=== PATIENT | female | born 1935 | race Caucasian/White ===

== ENCOUNTER 2017-02-25 19:31 | Inpatient (IN) | payer OTHER ==
[~2017-02-25] VITALS: Ht 157.5 cm; Wt 53.5 kg
[2017-02-25] MEDS ORDERED: QUET25TA PO (19:45)
[2017-02-25] MEDS ORDERED: DIAZ2TAB PO (19:45)
[2017-02-25] MEDS ORDERED: LEVO25TA2 PO (19:45)
--- NOTE | 2017-02-25 19:51 | NUR ---
DANNI FROM A RESIDENSE FOR PSYCH EVAL FOR " INTERMITENT HALUCINATIONS AND REFUSED TO GO TO HOSPITAL" -SI/-HI. PLACED ON 5242 02/25/17. PT IS A/O X 3 AND VERY PLEASANT. PT IS IN NO ACUTE DISTRESS IN BED. PT STATES "I WANT TO GO HOME AND WATCH MY DVDS." PT NOT C/O ANY PAIN, SOB, DIFFICULTY BREATHING AT THIS TIME. PT IS RESTING IN BED.
[2017-02-25 20:29] LABS: BASOPHILS # (AUTO) 0.1 /CMM (0.0-0.2); EOSINOPHILS % (AUTO) 0.3 % (0.0-6.0); HEMATOCRIT 45 % (33-45); HEMOGLOBIN 14.7 g/dL (11.5-14.8); LYMPHOCYTES # (AUTO) 1.2 /CMM (0.8-4.8); LYMPHOCYTES % (AUTO) 10.8 % (20.0-44.0); MEAN CORPUSCULAR HEMOGLOBIN 30 PG (26.0-33.0); MEAN CORPUSCULAR HGB CONC 33 g/dl (31.0-36.0); MEAN CORPUSCULAR VOLUME 92 fL (82-100); MONOCYTES # (AUTO) 0.5 /CMM (0.1-1.30); MONOCYTES % (AUTO) 4.2 % (2.0-12.0); NEUTROPHILS # (AUTO) 9.5 /CMM (1.8-8.9); NEUTROPHILS % (AUTO) 83.7 % (43.0-81.0); PLATELET COUNT (AUTO) 260 /CMM (150-450); RDW COEFFICIENT OF VARIATION 13.2 (11.5-15.0); RED BLOOD CELL COUNT(AUTO) 4.87 MIL/uL (4.0-5.2); WHITE BLOOD COUNT (AUTO) 11.3 K/uL (4.3-11.0)
[2017-02-25 20:39] LABS: CALCIUM, SERUM 9.1 mg/dL (8.5-10.1); CARBON DIOXIDE 29 mmol/L (21-32); CHLORIDE 107 mmol/L (98-107); CREATININE 1.3 mg/dL (0.6-1.3); GLUCOSE 125 mg/dL (74-106); POTASSIUM 4.1 mmol/L (3.5-5.1); SODIUM SERUM 141 mmol/L (136-145); UREA NITROGEN, BLOOD 19 mg/dL (7-18)
[2017-02-25 20:45] LABS: ALANINE AMINOTRANSFERASE 20 U/L (12-78); ALBUMIN 3.6 g/dL (3.4-5.0); ALCOHOL, BLOOD < 3 mg/dL (0-0); ALKALINE PHOSPHATASE 102 U/L (46-116); ASPARTATE AMINOTRANSFERASE 18 U/L (15-37); BILIRUBIN,DIRECT 0.1 mg/dL (0.0-0.2); BILIRUBIN,TOTAL 0.4 mg/dL (0.2-1.0); TOTAL PROTEIN, SERUM 7.4 g/dL (6.4-8.2)
[2017-02-25 20:47] LABS: ACETAMINOPHEN < 10 ug/ml (10-30); SALICYLATE 2.3 mg/dL (2.8-20.0)
[2017-02-25 22:00] VITALS: BP 149/71
--- NOTE | 2017-02-25 22:00 | NUR ---
GPS ADMISSION NOTE: ADMITTED THIS 81 Y/O FEMALE PATIENT FROM HOME. PATIENT ADMITTED ON A 5150 HOLD FOR DTS AND GD. PER HOLD PATIENT REPORTED THAT SHE LOST HER SISTER A COUPLE OF YEARS AGO AND SHORTLY AFTER LOST HER . PATIENT REPORTED MANY LOSSES IN HER LIFE, SHE IS VERY DEPRESSED AND CRIES /. THERAPIST REPORTED THAT RECENTLY SHE HAD A LACK OF APPETITE, AND PASSIVE SUICIDAL STATEMENTS "I'M BETTER OFF ", I'M GOING TO STARVE MYSELF TO ". PATIENT ALSO HAD POOR SLEEP, INCREASE IN PARANOID THOUGHTS AND HALLUCINATIONS. UPON FACE TO FACE ASSESSMENT PATIENT IS ALERT AND ORIENTATED X 2, AMBULATORY WITH ASSIST. PT IS LEGALLY BLIND, DISHEVELED, DEPRESSED, COOPERATIVE. V/S WNL. NO COMPLAIN OF PAIN/DISCOMFORT AT THIS TIME. PATIENT DENIES SUICIDE IDEATIONS AND HOMICIDAL IDEATIONS AT THIS TIME. PATIENT IS UNDER THE PSYCHIATRIC CARE OF DR. CELAYA AND THE MEDICAL CARE OF DR CLEMENS. PATIENT BELONGINGS WERE INVENTORIED AND CHECKED FOR CONTRABAND. ALL CONTRABAND REMOVED AND STORED IN PATIENT LOCKER. MRSA DONE. SKIN ASSESSMENT COMPLETED. ALL NEEDS ATTENDED AND ANTICIPATED. PATIENT BED SIDE RAILS ARE UP X 2 FOR SAFETY. WILL CONTINUE TO MONITOR PATIENT Q 15 MINS FOR SAFETY.
[2017-02-25] MEDS ORDERED: ACETAMINOPHEN 325 MG TABLET PO PRN (23:30)
[2017-02-25] MEDS ORDERED: MAG HYDROX/AL HYDROX/SIMETH 30 ML UDC PO PRN (23:30)
[2017-02-25] MEDS ORDERED: clonazePAM 0.5 MG TABLET PO PRN (23:30)
[2017-02-25] MEDS ORDERED: TEMAZEPAM 7.5 MG CAPSULE PO PRN (23:30)
[2017-02-25] MEDS ORDERED: MAGNESIUM HYDROXIDE 30 ML UDC PO PRN (23:30)
[2017-02-26 06:28] LABS: BASOPHILS % (AUTO) 0.3 % (0.0-2.0); EOSINOPHILS # (AUTO) 0.1 /CMM (0.0-0.7); EOSINOPHILS % (AUTO) 0.6 % (0.0-6.0); HEMATOCRIT 43 % (33-45); HEMOGLOBIN 14.2 g/dL (11.5-14.8); LYMPHOCYTES # (AUTO) 1.4 /CMM (0.8-4.8); LYMPHOCYTES % (AUTO) 16.7 % (20.0-44.0); MEAN CORPUSCULAR HEMOGLOBIN 30 PG (26.0-33.0); MEAN CORPUSCULAR HGB CONC 33 g/dl (31.0-36.0); MEAN CORPUSCULAR VOLUME 93 fL (82-100); MONOCYTES # (AUTO) 0.4 /CMM (0.1-1.30); MONOCYTES % (AUTO) 5.2 % (2.0-12.0); NEUTROPHILS # (AUTO) 6.6 /CMM (1.8-8.9); NEUTROPHILS % (AUTO) 77.2 % (43.0-81.0); PLATELET COUNT (AUTO) 253 /CMM (150-450); RDW COEFFICIENT OF VARIATION 14.1 (11.5-15.0); RED BLOOD CELL COUNT(AUTO) 4.68 MIL/uL (4.0-5.2); WHITE BLOOD COUNT (AUTO) 8.6 K/uL (4.3-11.0)
[2017-02-26 07:00] VITALS: BP 149/71
[2017-02-26 07:12] LABS: CHOLESTEROL 160 mg/dL (<200); HDL CHOLESTEROL 41 mg/dL (40-60); LDL 97 mg/dL (0-99); TRIGLYCERIDES 88 mg/dL (30-150)
[2017-02-26 07:14] LABS: ALANINE AMINOTRANSFERASE 21 U/L (12-78); ALBUMIN 3.3 g/dL (3.4-5.0); ALKALINE PHOSPHATASE 97 U/L (46-116); ASPARTATE AMINOTRANSFERASE 19 U/L (15-37); BILIRUBIN,TOTAL 0.6 mg/dL (0.2-1.0); CALCIUM, SERUM 9.5 mg/dL (8.5-10.1); CARBON DIOXIDE 27 mmol/L (21-32); CHLORIDE 109 mmol/L (98-107); CREATININE 1.2 mg/dL (0.6-1.3); GLUCOSE 106 mg/dL (74-106); POTASSIUM 3.8 mmol/L (3.5-5.1); SODIUM SERUM 145 mmol/L (136-145); TOTAL PROTEIN, SERUM 7.1 g/dL (6.4-8.2); UREA NITROGEN, BLOOD 18 mg/dL (7-18)
[2017-02-26] MEDS ORDERED: DIAZ5TAB4 PO (07:18)
[2017-02-26 08:34] VITALS: BP 133/65
--- NOTE | 2017-02-26 08:35 | NUR ---
WOUND CARE CONSULT PATIENT SEEN AND SKIN INTEGRITY ASSESSMENT DONE. SEE [employer] REP ASSESSMENT IN [facility] FOR TODAY ALONG WITH ALL RECOMMENDATIONS. TREATMENT PLANS DISCUSSED WITH MD AND MD IN AGREEMENT. PATIENT WITH BIANCA AT 20, INDEPENDENT WITH BED MOBILITY AT THIS TIME. RECOMMEND PODIATRY CONSULT FOR FEET AND ALL TOENAILS X 10. Addendum: 02/26/17 at 0837 by CHELLY CARNEY WNDNU Amended: Links added.
[2017-02-26] MEDS: Z GUARD REMEDY 2 OZ OINT TP SCH (09:28)
[2017-02-26] MEDS: CLOTRIMAZOLE 1% 15 GM TUBE TP SCH ×2 (09:29→16:58)
--- NOTE | 2017-02-26 14:45 | NUR ---
Initial Discharge Note: Patient resides at [id number] [place] [id number] / [phone]. Patient reports having a caregiver. Patient wishes to return home upon discharge. EMY called Des Cohen [phone] / [phone] and left a voicemail regarding patient's discharge plan. EMY will follow up with MD and with caregiver and will work to arrange a safe and proper discharge.
--- NOTE | 2017-02-26 15:44 | NUR ---
UR Update: EMY called SILVANA ADAMS PHONE [phone] and confirmed that patient was approved through the weekend. Silvana stated yes and that the clinicals would be due on Wednesday. EMY will follow up at that time. AUTH# [id number]
[2017-02-26 16:20] VITALS: BP 141/67
--- NOTE | 2017-02-26 16:25 | NUR ---
RN NOTES PATIENT SEEN BY DR. REICH, RECEIVED NEW ORDERS. ORDER NOTED AND CARRIED OUT. PATIENT PREFERS TO TAKE SYNTHROID IN THE AFTERNOON, USUALLY AT 4PM. ORDER CHANGED, DR. CLEMENS MADE AWARE.
[2017-02-26] MEDS: LEVOTHYROXINE SODIUM 50 MCG TABLET PO SCH (16:54)
[2017-02-26] MEDS: DIAZEPAM 5 MG TABLET PO PRN (18:00)
[2017-02-26 20:00] VITALS: BP 140/55
[2017-02-26] MEDS: QUETIAPINE FUMARATE 25 MG TABLET PO SCH ×2 (22:00→22:21)
--- NOTE | 2017-02-26 22:24 | NUR ---
GPS RN NOTE: REFUSED SEROQUEL 25MG, EXPLAINED THE RISK AND BENEFIT, PATIENT STILL REFUSED. OFFERED X 3 ATTEMPT. PATIENT STILL REFUSED
[2017-02-27] MEDS ORDERED: LEVOTHYROXINE SODIUM 50 MCG TABLET PO SCH (07:30)
[2017-02-27 08:34] VITALS: BP 154/76
[2017-02-27] MEDS: CLOTRIMAZOLE 1% 15 GM TUBE TP SCH ×2 (08:45→16:48)
[2017-02-27] MEDS: Z GUARD REMEDY 2 OZ OINT TP SCH (08:45)
[2017-02-27] MEDS: ESCITALOPRAM OXALATE (10 MG) 10 MG TABLET PO SCH (08:48)
[2017-02-27 16:44] VITALS: BP 138/73
[2017-02-27] MEDS: DIAZEPAM 5 MG TABLET PO PRN (16:48)
[2017-02-27] MEDS: LEVOTHYROXINE SODIUM 50 MCG TABLET PO SCH (17:06)
[2017-02-27 20:00] VITALS: BP 124/71
[2017-02-27] MEDS: QUETIAPINE FUMARATE 25 MG TABLET PO SCH (21:10)
[2017-02-28 08:00] VITALS: BP 149/67
[2017-02-28] MEDS: ESCITALOPRAM OXALATE (10 MG) 10 MG TABLET PO SCH (08:25)
[2017-02-28] MEDS: CLOTRIMAZOLE 1% 15 GM TUBE TP SCH ×2 (08:26→16:47)
[2017-02-28] MEDS: Z GUARD REMEDY 2 OZ OINT TP SCH (08:27)
[2017-02-28 15:52] VITALS: BP 142/62
[2017-02-28] MEDS: LEVOTHYROXINE SODIUM 50 MCG TABLET PO SCH (16:42)
[2017-02-28] MEDS: DIAZEPAM 5 MG TABLET PO PRN (17:01)
[2017-02-28 20:29] VITALS: BP 130/68
[2017-02-28] MEDS: QUETIAPINE FUMARATE 25 MG TABLET PO SCH (21:19)
--- NOTE | 2017-03-01 06:45 | NUR ---
GPS RN NOTER DURING SHIFT PT. BEHAVIOR COOPERTIVE, NO ACUTE DISTRESS NOTED , DENIES SI / HI , ENDORSE TO NEXT SHIFT FOR COUNTNITY OF CARE
[2017-03-01 08:30] VITALS: BP 108/68
[2017-03-01] MEDS: CLOTRIMAZOLE 1% 15 GM TUBE TP SCH (08:41)
[2017-03-01] MEDS: ESCITALOPRAM OXALATE (10 MG) 10 MG TABLET PO SCH (08:41)
[2017-03-01] MEDS: Z GUARD REMEDY 2 OZ OINT TP SCH (08:41)
--- NOTE | 2017-03-01 09:57 | NUR ---
UR Update: EMY called SILVANA ADAMS PHONE [phone] and left a voicemail stating that patient will be discharged today. EMY stated that there is no discharge summary available yet, but that she will call in once one is written up by the doctor. EMY left her direct contact information on the voicemail. AUTH# [id number]
--- NOTE | 2017-03-01 10:22 | NUR ---
Discharge Note: Patient will be discharged home to [address] [facility] [address] [place] [address] / [phone] to the care of her 24 hour caregiver Vicki / [phone]. Patient will be transported by [employer] [facility] arranged by neonatal social worker. SW called pts caregiver, Vicki, and informed her that patient will be on her way in the afternoon, around 3pm. Patient will follow up with her fitness management director, Dr. Garces [address] [facility] [address] [place], [phone] on WednesdayMarch 05 at 10:00am. Patient will follow up with her psychiatrist, Dr. Batista [address] [facility] [address] [place], within the week. Patient is not a smoker and does not abuse drugs/ alcohol.
--- NOTE | 2017-03-01 15:35 | NUR ---
GPS COFFEE ROASTER HELPER NOTE: PATIENT DISCHARGE HOME TO [address] [place] [address] IN STABLE CONDITION NO S/S DISTRESS NOTED PT COOPERATIVE AND COMPLIANT WITH MEDICATIONS AND TX, DENIES SUICIDAL AND HOMICIDAL IDEATION .PT BLIND WILL HAVE 24 HOURS CAREGIVER HARJEET [phone], PT VSS WNL. SKIN ASSESSMENT DONE WITH BUTTOCK ,GROIN REDNESS,DRYNESS ON BOTH FEET , PICTURES TAKEN LAST NIGHT PT WAS SEEN BY HEEL SEAT FITTER REGARDING TOENAILS ,MEDICATIONS EXPLAIN AND ALL BELONGINGS RETURNED TO PATIENT.PT UNABLE TO SIGN DISCHARGE PAPERS DUE TO BLINDNESS,WAS TRANSPORTED BY [facility].
== END 2017-03-01 15:35 | disposition home or self-care (01) | DRG 881 ==
LOC: ER 19:34 → GPS 21:03
PROVIDERS: ADMIT Psychiatry & Neurology Psychiatry; ATTEND Internal Medicine
DX: F32.9 Major depressive disorder, single episode, unspecified (principal); L89.151 Pressure ulcer of sacral region, stage 1; F29 Unspecified psychosis not due to a substance or known physiological condition; E03.9 Hypothyroidism, unspecified; F41.9 Anxiety disorder, unspecified; H54.8 Legal blindness, as defined in USA; L60.2 Onychogryphosis; B35.1 Tinea unguium
CPT/HCPCS: 36415; 80048-TC; 80053-TC; 80061-TC; 80076-TC; 85025-TC; A4606; G0480; Z7610